=== PATIENT | female | born 1935 | race Two or more races ===

== ENCOUNTER 2022-02-25 10:45 | Inpatient (IN) | payer OTHER ==
[2022-02-25] MEDS ORDERED: TOPROL XL50 M1 PO (15:24)
[2022-02-25] MEDS ORDERED: PANTOPRAZOLE SO40 M2 PO (15:24)
[2022-02-25] MEDS ORDERED: PLAVIX75 MG PO (15:25)
[2022-02-25] MEDS ORDERED: SINGULAIR10 MG PO (15:25)
[2022-02-25] MEDS ORDERED: HYDROXYZIN10 MG/5 ML PO (15:26)
[2022-02-25] MEDS ORDERED: BREO (15:27)
[2022-03-12] MEDS ORDERED: BREO ELLIPTA I1 EACH (09:35)
[2022-03-12] MEDS ORDERED: DORZOLAMIDE-TIM10 ML (09:35)
[2022-03-12] MEDS ORDERED: CLOBETASOL PROP15 GM (09:36)
[2022-03-12] MEDS ORDERED: FLUOCINOLONE AC20 ML (09:36)
[2022-04-30] MEDS ORDERED: PROTEINEX-18 LI30 ML NGT (11:17)
[2022-04-30] MEDS ORDERED: ELIQUIS2.5 MG PO (11:17)
[2022-04-30] MEDS ORDERED: AMIODARONE HCL200 MG NGT (11:17)
[2022-04-30] MEDS ORDERED: XOPENEX0.63 MG/3 IH (11:17)
[2022-04-30] MEDS ORDERED: PANTOPRAZOLE SO40 M2 PO (11:17)
[2022-04-30] MEDS ORDERED: SINGULAIR10 MG PO (11:17)
[2022-04-30] MEDS ORDERED: HYDRODIURIL12.5 MG PO (11:17)
== END 2022-04-30 13:43 | disposition home or self-care (01) | DRG 3 ==
LOC: SURG 03-02 07:00 → SURH 03-12 06:52 → O/R 03-12 06:52 → ICU 03-12 06:52 → SURH 03-12 13:48 → ICU 03-16 17:41 → SURH 04-12 22:57
PROVIDERS: ADMIT Surgery; ATTEND Surgery
PROC: 07BC0ZZ Excision of Pelvis Lymphatic, Open Approach (ICD-10-PCS; 2022-03-12)
PROC: 4A12X4Z Monitoring of Cardiac Electrical Activity, External Approach (ICD-10-PCS; 2022-03-12)
PROC: 0DTF0ZZ Resection of Right Large Intestine, Open Approach (ICD-10-PCS; principal; 2022-03-12 07:15)
PROC: 02HV33Z Insertion of Infusion Device into Superior Vena Cava, Percutaneous Approach (ICD-10-PCS; 2022-03-14)
PROC: 30243N0 Transfusion of Autologous Red Blood Cells into Central Vein, Percutaneous Approach (ICD-10-PCS; 2022-03-14)
PROC: 5A1955Z Respiratory Ventilation, Greater than 96 Consecutive Hours (ICD-10-PCS; 2022-03-16)
PROC: 0BH17EZ Insertion of Endotracheal Airway into Trachea, Via Natural or Artificial Opening (ICD-10-PCS; 2022-03-16)
PROC: 0B110F4 Bypass Trachea to Cutaneous with Tracheostomy Device, Open Approach (ICD-10-PCS; 2022-04-01)
PROC: 0DH60UZ Insertion of Feeding Device into Stomach, Open Approach (ICD-10-PCS; 2022-04-11)
PROC: 0D160Z4 Bypass Stomach to Cutaneous, Open Approach (ICD-10-PCS; 2022-04-11)
DX: C18.0 Malignant neoplasm of cecum (principal); I46.8 Cardiac arrest due to other underlying condition; K63.1 Perforation of intestine (nontraumatic); J95.821 Acute postprocedural respiratory failure; J69.0 Pneumonitis due to inhalation of food and vomit; B37.49 Other urogenital candidiasis; C78.00 Secondary malignant neoplasm of unspecified lung; G93.1 Anoxic brain damage, not elsewhere classified; C77.5 Secondary and unspecified malignant neoplasm of intrapelvic lymph nodes; R59.0 Localized enlarged lymph nodes; Z53.31 Laparoscopic surgical procedure converted to open procedure; I11.9 Hypertensive heart disease without heart failure; D64.9 Anemia, unspecified; B95.8 Unspecified staphylococcus as the cause of diseases classified elsewhere; R13.19 Other dysphagia; Z66 Do not resuscitate